=== PATIENT | male | born 1970 ===

== ENCOUNTER 2022-05-14 05:03 | Emergency (ER) | payer SELFPAY ==
[2022-05-14] MEDS ORDERED: KETOROLAC TROMETHAMINE 30 MG/1 ML VIAL IVPUSH ONE (05:07)
[2022-05-14] MEDS ORDERED: morphine CARPU-JECT 4 MG/1 ML DISP.SYRIN IVPUSH ONE ×2 (05:07→05:39)
[2022-05-14] MEDS ORDERED: SODIUM CHLORIDE 1,000 ML IV ONE (05:07)
[2022-05-14 05:14] VITALS: TEMP 98.2; BMI 25.1
[2022-05-14] MEDS ORDERED: morphine SULFATE 4 MG/ML VIAL ONE ×2 (05:15→05:39)
[2022-05-14 06:51] LABS: HEMATOCRIT 42.5 % (35.4-49); HEMOGLOBIN 14.1 GM/dL (11.7-16.9); MCH 29.3 pg (25.7-33.7); MCHC 33.3 g/dl (32.0-35.9); MEAN CELL VOLUME 87.9 fl (80-96); MEAN PLT VOLUME 10.4 fl (7.5-11.1); PLATELET COUNT 181 10^3/uL (134-434); RBC 4.83 M/mm3 (4.00-5.60); RDW 12.9 % (11.9-15.9); WHITE BLOOD COUNT 10.9 K/mm3 (4.0-10.0)
[2022-05-14 07:26] LABS: CALCIUM 8.7 mg/dL (8.5-10.1)
[2022-05-14 07:27] LABS: BLOOD UREA NITROGEN 29.2 mg/dL (7-18)
[2022-05-14 07:31] LABS: CREATININE 1.1 mg/dL (0.55-1.3)
[2022-05-14 07:32] LABS: TOT PROT 7.2 g/dl (6.4-8.2)
[2022-05-14 07:47] VITALS: BP 124/70; PULSE 54; RESP 16
[2022-05-14 07:56] LABS: EPI CELLS 7 /uL (0-25.1); HYALINE CASTS 0 /uL (0-3.1); PH,URINE 6.5 (5.0-8.0); URINE APPEARANCE CLEAR; URINE BACTERIA 18 /uL (0-1359); URINE BILIRUBIN NEGATIVE (NEGATIVE); URINE COLOR YELLOW; URINE GLUCOSE (UA) NEGATIVE (NEGATIVE); URINE KETONE NEGATIVE (NEGATIVE); URINE LEUK ESTERASE NEGATIVE (NEGATIVE); URINE NITRITE NEGATIVE (NEGATIVE); URINE PROTEIN NEGATIVE (NEGATIVE); URINE RBC 80 /uL (0-23.9); URINE UROBILINOGEN 0.2 mg/dL (0.2-1.0); URINE WBC 10 /uL (0-25.8)
[2022-05-14 08:46] LABS: BILIRUBIN,TOTAL 0.6 mg/dL (0.2-1)
== END 2022-05-14 08:09 | disposition home or self-care (01) ==
LOC: FER 05:03
PROC: 3E0234Z Introduction of Serum, Toxoid and Vaccine into Muscle, Percutaneous Approach (ICD-10-PCS; principal; 2022-05-14)
PROC: 3E0337Z Introduction of Electrolytic and Water Balance Substance into Peripheral Vein, Percutaneous Approach (ICD-10-PCS; 2022-05-14)
DX: N20.0 Calculus of kidney (principal)
CPT/HCPCS: 36415; 74176-TC; 80053; 81003; 85027; 99284-25